=== PATIENT | female | born 1975 | race Caucasian/White ===

== ENCOUNTER 2016-11-05 04:30 | Emergency (ER) | payer OTHER ==
[2016-11-05 05:00] VITALS: BP 156/93
== END 2016-11-05 05:02 | disposition home or self-care (01) ==
LOC: ED 04:30
DX: H66.92 Otitis media, unspecified, left ear (principal)

== ENCOUNTER 2018-02-02 08:44 | Emergency (ER) | payer OTHER ==
[~2018-02-02] VITALS: Ht 154.9 cm; Wt 90.3 kg
[2018-02-02 08:47] VITALS: Ht 154.9 cm; Wt 90.3 kg
[2018-02-02 11:47] VITALS: BP 121/71
== END 2018-02-02 11:47 | disposition home or self-care (01) ==
LOC: ED 08:44
DX: S90.32XA Contusion of left foot, initial encounter (principal); W01.0XXA Fall on same level from slipping, tripping and stumbling without subsequent striking against object, initial encounter; Y93.89 Activity, other specified; Y92.89 Other specified places as the place of occurrence of the external cause; Y99.8 Other external cause status
CPT/HCPCS: Q0092

== ENCOUNTER 2018-02-08 07:35 | Emergency (ER) | payer OTHER ==
[~2018-02-08] VITALS: Ht 157.5 cm; Wt 91.2 kg
[2018-02-08 07:37] VITALS: Ht 157.5 cm; Wt 91.2 kg
[2018-02-08 09:04] VITALS: BP 120/84
== END 2018-02-08 09:04 | disposition home or self-care (01) ==
LOC: ED 07:35
DX: S39.012A Strain of muscle, fascia and tendon of lower back, initial encounter (principal); W18.39XA Other fall on same level, initial encounter; Y93.89 Activity, other specified; Y92.89 Other specified places as the place of occurrence of the external cause; Y99.8 Other external cause status
CPT/HCPCS: J1885

== ENCOUNTER 2018-05-10 19:53 | Emergency (ER) | payer OTHER ==
[~2018-05-10] VITALS: Ht 157.5 cm; Wt 93.4 kg
[2018-05-10 20:45] VITALS: Ht 157.5 cm; Wt 93.4 kg
[2018-05-10 23:58] VITALS: BP 136/78
== END 2018-05-10 23:58 | disposition home or self-care (01) ==
LOC: ED 19:53
DX: L60.0 Ingrowing nail (principal)
CPT/HCPCS: A4570